=== PATIENT | male | born 1955 | race Hispanic/Latino ===

== ENCOUNTER → 2017-10-04 | Outpatient (CLI) | payer OTHER ==
[~2017-10-04] MED LIST: ASPI-1012 PO; Acetaminophen PO; BUPR75TA8 PO; CALC500T7 PO; CELE200 PO; LATA2.5D2 OP; OMEP20CA10 PO; OXYC5 PO; PRAZ1CAP5 PO; PREG25 PO; RANI150C4 PO; SUNI37.5 PO
== END ==
LOC: RAH 15:43
PROVIDERS: ATTEND Nurse Practitioner Family
DX: M23.222 Derangement of posterior horn of medial meniscus due to old tear or injury, left knee (principal); M23.201 Derangement of unspecified lateral meniscus due to old tear or injury, left knee
CPT/HCPCS: 73721

== ENCOUNTER → 2017-10-31 | Outpatient (CLI) | payer OTHER | END | disposition home or self-care (01) | LOC: RAH 12:33 | PROVIDERS: ATTEND Nurse Practitioner Family | DX: M79.672 Pain in left foot (principal); M79.671 Pain in right foot | CPT/HCPCS: 73718 ==